=== PATIENT | male | born 1955 | race African-American/Black ===

== ENCOUNTER 2019-09-26 09:03 | Emergency (ER) | payer OTHER ==
[2019-09-26] MEDS ORDERED: Adacel (T-DAP) 0.5 ML SYRINGE ONE (09:31)
[2019-09-26] MEDS ORDERED: Lidocaine 4% Cream 5 GM TUBE w/ Tegaderm ONE (09:31)
== END 2019-09-26 10:46 | disposition home or self-care (01) ==
LOC: BURERS 09:03
DX: S61.211A Laceration without foreign body of left index finger without damage to nail, initial encounter (principal); M10.9 Gout, unspecified; I10 Essential (primary) hypertension; W26.8XXA Contact with other sharp object(s), not elsewhere classified, initial encounter
CPT/HCPCS: 12001; 90471; 90715